=== PATIENT | female | born 1960 | race Caucasian/White ===

== ENCOUNTER 2017-12-31 08:16 | Day surgery (SDC) | payer BC, OTHER ==
[~2017-12-31 08:16] MED LIST: Lactated Ringers 1,000 ML IV SCH; Lidocaine 1%/Sod Bicarbonate in NS 8.4% 1 ML Syringe IDERM PRN; Sodium Chloride 0.9% 10 ML Syringe FLUSH PRN
--- NOTE | 2017-12-31 08:58 | PCM.PREANE ---
Preanesthetic Assessment - Anesthesia/Transfusion/Family Hx Anesthesia History: No Prior Anesthesia Family History of Anesthesia Reaction: No Transfusion History: Prior Transfusion Without Reaction - Review of Systems General: No Symptoms Pulmonary: Cough (have had for a few weeks) Cardiovascular: No Symptoms Gastrointestinal: No Symptoms Neurological: No Symptoms Other: Reports: None - Physical Assessment NPO Status Date: 12/30/17 NPO Status Time: 23:00 Pulse: 71 O2 Sat by Pulse Oximetry: 98 Respiratory Rate: 16 Blood Pressure: 128/74 Temperature: 37.4 C Vital Signs: Last Vital Signs Temp 37.4 C 12/31/17 08:20 Pulse 71 12/31/17 08:20 Resp 16 12/31/17 08:20 BP 128/74 12/31/17 08:20 Pulse Ox 98 12/31/17 08:20 Height: 1.7 m Weight: 146.51 kg ASA Class: 2 Mental Status: Alert & Oriented x3 Airway Class: Mallampati = 2 Dentition: Reports: Broken Tooth/Teeth (top right) Thyro-Mental Finger Breadths: 2 Mouth Opening Finger Breadths: 2 ROM/Head Extension: Full Lungs: Clear to Auscultation, Normal Respiratory Effort Cardiovascular: Regular Rate, Regular Rhythm, No Murmurs - Allergies Allergies/Adverse Reactions: Allergies Allergy/AdvReac Type Severity Reaction Status Date / Time Seasonal Allergies Allergy Unknown Unknown Uncoded 12/28/17 13:35 - Blood Blood Available: No Product(s) Available: None - Anesthesia Plan Pre-Op Medication Ordered: None - Acknowledgements Anesthesia Type Planned: MAC Pt an Appropriate Candidate for the Planned Anesthesia: Yes Alternatives and Risks of Anesthesia Discussed w Pt/Guardian: Yes Pt/Guardian Understands and Agrees with Anesthesia Plan: Yes PreAnesthesia Questionnaire Other Respiratory History: Lung "issues" during radiation treatments for Breast Cancer. States she has had pneumonia in the past, but "not for at least 5 years ". Genitourinary History: Reports: Other (See Below) Other Genitourinary History: Urgency Other OB/BYN History: , Hysterectomy, Breast Lumpectomy Other Musculoskeletal History: Scolosis Neurological History: Reports: Vertigo Endocrine/Metabolic History: Reports: Obesity/BMI 30+ Oncologic (Cancer) History: Reports: Breast, Other (See Below) Other Oncologic History: "Skin Cancer" Dermatologic History: Reports: Psoriasis Other Dermatologic History: Soft Tissue Mass - SUBSTANCE USE Smoking Status *Q: Never Smoker Tobacco Use Within Last Twelve Months: No Second Hand Smoke Exposure: No Days Per Week of Alcohol Use: 0 Number of Drinks Per Day: 0 Total Drinks Per Week: 0 Recreational Drug Use History: No - HOME MEDS Home Medications: Home Meds . [No Known Home Meds] 12/28/17 [History] - CURRENT (IN HOUSE) MEDS Current Meds: Current Medications Lactated Ringer's (Ringers, Lactated) 1,000 mls @ 125 mls/hr IV ASDIRECTED BUSHRA Stop: 12/31/17 23:00 Last Admin: 12/31/17 08:35 Dose: 125 mls/hr Lidocaine/Sodium Bicarbonate (Buffered Lidocaine 1% In Ns 8.4%) 0.25 ml IDERM ONETIME PRN PRN Reason: Prior to IV Start Stop: 12/31/17 18:00 Last Admin: 12/31/17 08:35 Dose: 0.25 ml Sodium Chloride (Saline Flush) 10 ml FLUSH ASDIRECTED PRN PRN Reason: Keep Vein Open Stop: 12/31/17 18:00
[2017-12-31] MEDS ORDERED: Midazolam 1 MG/ML 2 ML SDV ONE (09:42)
[2017-12-31] MEDS ORDERED: Lidocaine 1% 6 ML ONE (09:42)
[2017-12-31] MEDS ORDERED: fentaNYL 100 MCG/2 ML SDV ONE (09:42)
[2017-12-31] MEDS ORDERED: Propofol 200 MG/20 ML SDV ONE (09:42)
[2017-12-31] MEDS ORDERED: Lidocaine 1% 2 ML ONE (09:44)
[2017-12-31] MEDS ORDERED: Ondansetron 4 MG/2 ML SDV ONE (10:07)
--- NOTE | 2017-12-31 10:22 | PCM.OPNOTE ---
- General Post-Op/Procedure Note Date of Surgery/Procedure: 12/31/17 Operative Procedure(s): colonosocopy to cecum Pre Op Diagnosis: screening colonosocopy Post-Op Diagnosis: Same Anesthesia Technique: MAC Primary Surgeon: Joel James EBL in mLs: 0 Complications: None Condition: Good
--- NOTE | 2017-12-31 10:28 | PCM48HPAN ---
Post Anesthesia Note - EVALUATION WITHIN 48HRS OF ANESTHETIC Vital Signs in Normal Range: Yes Patient Participated in Evaluation: Yes Respiratory Function Stable: Yes Airway Patent: Yes Cardiovascular Function Stable: Yes Hydration Status Stable: Yes Pain Control Satisfactory: Yes Nausea and Vomiting Control Satisfactory: Yes Mental Status Recovered: Yes Pulse Rate: 71 SaO2: 92 Resp Rate: 16 Temperature: 36.6 C Blood Pressure: 113/56
[2017-12-31] MEDS ORDERED: Lactated Ringers 1,000 ML ONE (13:43)
--- NOTE | 2017-12-31 20:43 | OR ---
DATE OF OPERATION: 12/31/2017 SURGEON: Joel James MD PREOPERATIVE DIAGNOSIS: Screening colonoscopy. POSTOPERATIVE DIAGNOSIS: Screening colonoscopy. OPERATION PERFORMED: Colonoscopy to cecum. FINDINGS: A normal study done under IV sedation. RECOMMENDATION: Repeat colonoscopy in 10 years. DESCRIPTION OF PROCEDURE: The patient was taken to the endoscopy room, placed in a supine position, connected to monitoring equipment, given IV sedation, placed in the left lateral position. The perianal area was inspected was normal. Rectal exam showed good sphincter tone. A video Olympus colonoscope was then introduced into the rectum and threaded up without problem to the cecum, where the appendicular orifice was seen. Prep was excellent throughout the colon. [place] cleansing score grade A, and the scope was slowly withdrawn showing the cecum, ascending colon, transverse colon, descending colon, sigmoid colon, and rectum. Retroflexed view was done. The patient tolerated the procedure, sent to recovery room in a stable condition. Will be followed up in the clinic as needed. ANESTHESIA: ESTIMATED BLOOD LOSS: MMODAL /[id number]
== END 2017-12-31 10:58 | disposition home or self-care (01) ==
LOC: JD.SDS 08:16
PROVIDERS: ATTEND Surgery
DX: Z12.11 Encounter for screening for malignant neoplasm of colon (principal)
CPT/HCPCS: 45378; J2405; J3010; J7120; 00812; J2001; J2250; J2704